=== PATIENT | male | born 1965 | race Caucasian/White ===

== ENCOUNTER 2019-05-03 18:25 | Emergency (ER) | payer BC ==
--- OUTSIDE RECORDS SUMMARY | 2019-05-03 18:39 | XMS REPORT | Continuity of Care Document ---
:1965 External Reference #:[id number] Author Name Mark Shelton M.D. 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 Onset: obstruction Acute sinusitis Mark Shelton M.D. Onset: 04/29/2019 Hyperlipidemia Mark Shelton M.D. Onset: 10/03/2016 Acute upper respiratory infection, Mark Shelton M.D. 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 Onset: 12/07/2015 Obstructive sleep apnea syndrome Mark Shelton M.D. Onset: 12/07/2015 Obesity Mark Shelton M.D. Onset: 12/07/2015 Disorder of thyroid gland Mrak Shelton M.D. Onset: 12/07/2015 Hypothyroidism Renny Armenta M.D. Onset: 12/31/2012 Social History Type Date Description Comments Sex Unknown Smokeless Tobacco Current Smokeless Tobacco User, Uses Once Daily ETOH Use Occasional Tobacco Use Start: Unknown End: Unknown Patient is a former smoker Smoking Status Reviewed: 05/01/18 Patient is a former smoker Allergies, Adverse Reactions, Alerts Description No Known Drug Allergies Medications Active Medications SIG Qnty Indications Ordering Date Provider Coricidin HBP Chest Take 1 capsule by 30caps Mark Hay 04/29/2019 Congestion & Cough mouth every 4 Nasra Shelton hours as needed Capsules for chest congestion Amoxicillin/Clavulana 1 twice a day w/ 14tabs Mark Hay 04/29/2019 te Potassium food. Nasra Shelton 875-125mg Tablets Out Of Work Until out of work until Mark FArchie 04/29/2019Friday, 05/03/2019 Nasra Shelton for medical reasons Levothyroxine Sodium 1 by mouth every 90tabs Mark Hay 11/19/2017 day Nasra Shelton 100mcg Tablets Immunizations CPT Code Status Date Vaccine Lot # [id number] Given 12/07/2015 Tdap Tetanus, W Pertussis [id number] Vital Signs Date Vital Result Comment 04/29/2019 11:13am BP Systolic 120 mmHg BP Diastolic 80 mmHg Heart Rate 78 /min Body Temperature 97.9 F Respiratory Rate 16 /min Weight 184.00 lb 05/01/2018 11:28am BP Systolic 162 mmHg BP Diastolic 98 mmHg Heart Rate 86 /min Body Temperature 97.7 F Respiratory Rate 16 /min O2 % BldC Oximetry 96 % Ra Weight 200.12 lb Results Description No Information Available Procedures Description No Information Available Medical Devices Description No Information Available Encounters Description No Information Available Assessments Date Code Description Provider 04/29/2019 J01.90 Acute sinusitis, unspecified Mark Shelton M.D. 04/29/2019 E03.9 Hypothyroidism, unspecified Mark Shelton M.D. 04/29/2019 G60.3 Idiopathic progressive neuropathy Mark Shelton M.D. 04/29/2019 N40.0 Benign prostatic hyperplasia without lower Mark Shelton M.D. urinary tract symptoms 04/29/2019 Z12.11 Encounter for screening for malignant Mark Shelton M.D. neoplasm of colon Plan of Treatment Future Appointment(s):06/29/2019 3:45 pm - Mark Shelton M.D. at [facility]/07/2019 10:00 am - Mark Shelton M.D. at [facility]/29/2019 - Mark Shelton M.D.J01.90 Acute sinusitis, unspecifiedComments:start augmentin for one week, coricibridger MCKEON, will contact us if no [id number] Hypothyroidism, unspecifiedNew Labs:TSH ([facility]), Ordered: Free T4 ([facility]), Ordered: 04/29/19CBC Electronic-[facility], Ordered: 04/29/19Comp Metabolic-[facility], Ordered: 04/29/19Lipid Panel- [facility], Ordered: 04/29/19Follow up:Followup:. (Follow up)G60.3 Idiopathic progressive skjyumidcbR07.0 Benign prostatic hyperplasia without lower urinary tract symptomsNew Labs:PSA ([facility]), Ordered: Comments:The patient was advised to have yearly digital rectal exams, and a yearly psaZ12.11 Encounter for screening for malignant neoplasm of colonNew Labs :Ict Hemoccult ([facility]), Ordered: 04/29/19AllNew Medication:Coricidin HBP Chest Congestion & Cough - Take 1 capsule by mouth every 4 hours as needed for chest congestionAmoxicillin/Clavulanate Potassium 875-125 mg - 1 twice a day w/ food.Out Of Work Until - out of work until 05/03/2019 for medical reasonsComments:advised patient to return for cpe and lab work, hemeoccults given, advised colonoscopy Functional Status Description No Information Available Mental Status Description No Information Available Referrals Description No Information Available
[2019-05-04] MEDS ORDERED: Montelukast Sodium TAB* 10 MG PO ONE (00:10)
--- NOTE | 2019-05-04 00:10 | ED ---
Dizziness - HPI Summary HPI Summary: Patient is a 54 y/o M presenting to [facility] with complaints of light-headedness, dizziness, and sinus infection. Patient additionally endorses nausea, chills, congestion, decreased appetite and lower left back pain but denies vomiting. Patient reports that Sx onset 6-7 days ago. He states that he saw his PCP three days ago, who prescribed him Augmentin. However, he states that he has not experienced relief in his Sx and reports onset of a cough. He states that he attempted to go to work today but could not finish due to dizziness. Patient is on levothyroxine. He notes that he has not tried any nasal sprays. Patient has been taking coricidin. On triage, pain is rated 5/10, nothing is noted to aggravate/alleviate Sx. Home medications and allergies are reviewed. - History Of Current Complaint Chief Complaint: EDUpperRespComplaint Stated Complaint: DIZZINESS/NAUSEA PER PT Time Seen by Provider: 05/04/19 00:01 Hx Obtained From: Patient Onset/Duration: Still Present Timing: Constant Severity Currently: Moderate Character: Lightheaded, Dizzy Aggravating Factor(s): Nothing Alleviating Factor(s): Nothing Associated Signs And Symptoms: Positive: Nausea, Decreased Oral Intake - decreased appetite, Chills, Other: - positive - light-headed and dizzy, sinus infection, congestion, lower left back pain, cough. Negative: Vomiting - Allergies/Home Medications Allergies/Adverse Reactions: Allergies Allergy/AdvReac Type Severity Reaction Status Date / Time No Known Allergies Allergy Verified 05/03/19 18:32 PMH/Surg Hx/FS Hx/Imm Hx Endocrine/Hematology History: Denies: Hx Diabetes Respiratory History: Denies: Hx Asthma, Hx Chronic Obstructive Pulmonary Disease (COPD), Hx Pneumonia Infectious Disease History: No Infectious Disease History: Denies: Traveled Outside the [place] in Last 30 Days - Family History Known Family History: Negative: Seizure Disorder - Social History Alcohol Use: Rare Substance Use Type: Reports: Marijuana - almost daily Hx Tobacco Use: Yes Smoking Status (MU): Light Every Day Tobacco Smoker Type: eCigarettes Review of Systems Positive: Chills ENT: Other - positive - sinus infection, congestion Positive: Cough Gastrointestinal: Other - positive - decreased appetite Positive: Nausea. Negative: Vomiting Musculoskeletal: Other - positive - lower back pain, left Neurological: Other - POSITIVE - light-headedness and dizziness All Other Systems Reviewed And Are Negative: Yes Physical Exam - Summary Physical Exam Summary: Appearance: Well-appearing, Well-nourished, lying in bed comfortably Skin: Warm, dry, no obvious rash Eyes: sclera anicteric, no conjunctival pallor ENT: Bilateral sinus tenderness to percussion, mucous membranes moist, pharynx appears normal Neck: Supple, nontender Respiratory: Clear to auscultation, no signs of respiratory distress Cardiovascular: Normal S1, S2. No murmurs. Normal distal pulses in tibial and radial bilaterally. Abdomen: Soft, nontender, normal active bowel sounds present Musculoskeletal: Normal, Strength/ROM Intact Neurological: A&Ox3, awake and alert, mentation is normal, speech is fluent and appropriate Psychiatric: affect is normal, does not appear anxious or depressed Triage Information Reviewed: Yes Vital Signs On Initial Exam: Initial Vitals Temp Pulse Resp BP Pulse Ox 98.7 F 71 16 156/94 97 05/03/19 18:29 05/03/19 18:29 05/03/19 18:29 05/03/19 18:29 05/03/19 18:29 Vital Signs Reviewed: Yes Diagnostics - Vital Signs Vital Signs Temp Pulse Resp BP Pulse Ox 05/03/19 23:37 97.9 F 58 16 155/81 98 05/03/19 20:35 97.8 F 70 16 127/80 97 05/03/19 18:29 98.7 F 71 16 156/94 97 - Laboratory Lab Statement: Any lab studies that have been ordered have been reviewed, and results considered in the medical decision making process. Dizzy Course/Dx - Course Course Of Treatment: Patient is a 54 y/o M presenting to [facility] with complaints of light-headedness, dizziness, and sinus infection. Patient additionally endorses nausea, chills, congestion, decreased appetite and lower left back pain but denies vomiting. Patient reports that Sx onset 6-7 days ago. He states that he saw his PCP three days ago, who prescribed him Augmentin. However, he states that he has not experienced relief in his Sx and reports onset of a cough. He states that he attempted to go to work today but could not finish due to dizziness. During ED course, patient was given Singulair Tab 10 mg PO and prescription for this medication. He was advised to obtain a nedi-pot for his Sx. He is agreeable with discharge and this treatment plan. - Diagnoses Provider Diagnoses: Sinusitis Discharge ED - Sign-Out/Discharge Documenting (check all that apply): Patient Departure - discharge Patient Received Moderate/Deep Sedation with Procedure: No - Discharge Plan Condition: Stable Disposition: HOME Prescriptions: Montelukast Sodium TAB* [Singulair TAB*] 10 mg PO BEDTIME #20 tab Patient Education Materials: Rhinosinusitis (ED), Allergies (ED) Forms: *Work Release Referrals: Mark Shelton MD [Primary Care Provider] - Additional Instructions: Get a nedi pot and follow instructions. This will help rinse things out and help with drainage of the sinuses. - Billing Disposition and Condition Condition: STABLE Disposition: Home - Attestation Statements Document Initiated by Parag: Yes Documenting Scribe: MONIQUE VASQUEZ Provider For Whom Parag is Documenting (Include Credential): DARBY DINH MD Scribe Attestation: MONIQUE Mitchell, scribed for DARBY DINH MD on 05/08/19 at 0549. Scribe Documentation Reviewed: Yes Provider Attestation: The documentation as recorded by the MONIQUE castaneda accurately reflects the service I personally performed and the decisions made by me, DARBY DINH MD Status of Scribe Document: Viewed
[2019-05-04 00:27] VITALS: BP 125/85
== END 2019-05-04 00:26 | disposition home or self-care (01) ==
LOC: ED 18:25
DX: J32.9 Chronic sinusitis, unspecified (principal); R05 Cough; F17.210 Nicotine dependence, cigarettes, uncomplicated
CPT/HCPCS: 99282; A9270-GY